=== PATIENT | female | born 1995 | race Hispanic/Latino ===

== ENCOUNTER 2020-11-19 09:20 | Emergency (ER) | payer OTHER ==
[~2020-11-19] VITALS: Ht 170.2 cm; Wt 94.3 kg
[2020-11-19 09:42] LABS: BASOPHILS % (AUTO) 0.8 % (0.0-5.0); HEMATOCRIT 37.5 % (36-48); LYMPHOCYTES % (AUTO) 36.6 % (21.0-51.0); MEAN CORPUSCULAR HGB CONC 29.9 g/dL (32.0-36.0); MEAN CORPUSCULAR VOLUME 80.3 fL (79-99); NEUTROPHILS % (AUTO) 53.3 % (40.0-77.0); PLATELET COUNT (AUTO) 324 K/uL (130-400); RED BLOOD CELL COUNT(AUTO) 4.67 MIL/uL (4.00-5.50); RED CELL DISTRIBUTION WIDTH 16.9 % (11.0-15.5); WHITE BLOOD COUNT (AUTO) 6.5 K/uL (4.8-10.8)
[2020-11-19 09:54] LABS: CREATININE 0.7 mg/dL (0.5-1.5); POTASSIUM 4.4 mmol/L (3.5-5.1)
== END 2020-11-19 09:23 | disposition home or self-care (01) ==
LOC: EDH 09:20
DX: N92.0 Excessive and frequent menstruation with regular cycle (principal)
CPT/HCPCS: 36415; 76857; 80048; 84703; 85025

== ENCOUNTER 2024-10-24 11:04 | Emergency (ER) | payer BC ==
[~2024-10-24] VITALS: Ht 157.5 cm; Wt 77.1 kg
--- NOTE | 2024-10-24 12:14 | ERN ---
ED Note History of Present Illness Stated Complaint: HEAD INJURY, BLEEDING Chief Complaint: Laceration/Avulsion Time Seen by MD: 11:05 Time Seen by Midlevel: 11:10 Dictation: 29-year-old female coming in for laceration to they left frontal scalp. Patient states she was walking upstairs when she hit a corner of a metal object. Patient states she did have positive LOC. states she woke up on the floor. At this time patient is denies any neck pain, nausea, vomiting, dizziness. Dry blood noted on one the laceration area. Patient states she is up-to-date with a tetanus vaccine. Allergies: Coded Allergies: No Known Allergies (Unverified Allergy, Unknown, 11/19/20) Past Medical History Past Medical History: No Pertinent History Surgical History: Tonsillectomy Review of System Dictation CONSTITUTIONAL: No chills, no fever, no weakness, no diaphoresis, no malaise. HEAD/FACE: Laceration to left frontal scalp EENT: No eye pain, no blurred vision, no tearing, no double vision, no ear pain, no ear discharge, no nose pain, no nasal congestion, no throat pain, no throat swelling, no mouth pain. RESPIRATORY: No cough, no orthopnea, no SOB, no stridor, no wheezing. CARDIOVASCULAR: No chest pain, no edema, no palpitations, no syncope. GASTROINTESTINAL/ABDOMINAL: No abdominal pain, no constipation, no diarrhea, no nausea, no vomiting. GENITOURINARY: No abnormal discharge, no dysuria, no frequent urination, no hematuria. No complaints of pain in the genitals. MUSCULOSKELETAL: No back pain, no gout, no joint pain, no joint swelling, no muscle pain, no muscle stiffness, no neck pain. INTEGUMENTARY: No change in color, no change in hair/nails, no dryness, no lesion, no lumps, no rash. NEUROLOGICAL/PSYCH: No anxiety, not depressed, no emotional problem, no headache, no numbness, no pre-existing deficit, no history of seizures, no tremors, no weakness. HEMATOLOGIC/LYMPHATIC: Not anemic, no history of blood clots, no apparent bleeding, no bruising, glands not swollen. All Systems Negative, Except as Noted. Review of Systems: was completed Initial Vital Sign VS Vital Signs Date Time Temp Pulse Resp B/P (MAP) Pulse Ox O2 Delivery O2 Flow Rate FiO2 10/24/24 11:10 98.1 81 14 149/94 98 Room Air 0 Physical Exam Dictation VITAL SIGNS: Reviewed. GENERAL APPEARANCE: Alert, oriented x3, no acute distress, obese. HEAD AND FACE: Laceration to left frontal scalp, dried blood noted. EYES: PERRL, pink conjunctivas, eyelid no trauma, anterior chamber clear. EARS: Pinnas intact and no signs of trauma or erythema. Ear canals clear and no discharge. TMs no erythema. NOSE: No discharge, no bleeding. OROPHARYNX: Mouth normal, teeth no caries, tongue pink. Pharynx clear, no erythema. Tonsils no exudates, no abscesses noted. Mucous membrane moist. NECK: Supple, non-tender, no thyromegaly, no masses, no JVD, no bruits. BREAST: Deferred. CHEST: No tenderness, no crepitus, no paradoxical movement, no retractions. LUNGS: Clear, well-ventilated, symmetric, no rales, no wheezing, no rhonchi, no stridor, good breath sounds bilaterally. HEART: Regular rate, regular rhythm, no murmur, no gallops. VASCULAR: No peripheral edema. ABDOMEN: Soft, positive bowel sounds, nondistended, no guarding, nontender, no rebound, no masses no hepatomegaly, no splenomegaly, no Rod's sign, no hernias. RECTAL: Deferred. GENITAL: Deferred. NEUROLOGICAL: Normal speech, gross motor function intact, gross sensory function intact. MUSCULOSKELETAL: Neck nontender, full range of motion, back nontender, full range of motion. EXTREMITIES: Nontender, full range of motion. SKIN: Color pink, dry, no turgor, no rash, no lacerations, no abrasions, no contusions. LYMPHATICS: Deferred. Results (Laboratory/Radiology) CT Scan Comment: [place] [id number] [address] IMAGING REPORT Signed PATIENT: RAYMUNDO SOTO MR#: [id number] : 1995 SEX: F AGE: 29 LOCATION: [facility] ORDER [id number] STATUS: REG REPORT#: [id number] SERVICE 1136 REASON: head trauma + loc ORDERING PHYSICIAN: ACOSTA DICK NP PROCEDURE: HEAD WO - CT HEAD/BRAIN W/O CONTRAST Exam Type: CT HEAD/BRAIN W/O CONTRAST Clinical Information: head trauma + loc Comparison: None CT Dose Index (CTDI): 57.33 mGy Dose Length Product (DLP): 956.79 total mGy-cm Findings: The examination is unremarkable. Ibanez-white matter junction is preserved. No intra or extra axial lesions or fluid collections are seen. Specifically, ibanez and white matter are normal in signal characteristics with normal caliber of ventricles and periventricular cisterns with no evidence of intra or or extra-axial hemorrhage, lacunar infarct, or major territorial infarct, mass, or other abnormality. There are no infarcts. There are no hemorrhages. Periventricular white matter locations are preserved. The orbital contents and structures of the posterior fossa are intact. Impression: Normal CT of the head. This study was performed using dose reduction techniques to include automated exposure control and/or adjustment of the mA and/or kV according to patient size. DICTATED BY: RICARDO SULLIVAN MD DATE: 10/24/241209 ELECTRONICALLY SIGNED BY: RICARDO SULLIVAN MD DATE: 10/24/241214 ED Course ED Course Orders Procedure Category Date Status Time Ct Head/Brain W/O CT 10/24/24 Resulted Contrast 11:36 Acetaminophen 500mg PHA 10/24/24 Complete Tab (Tylenol 500mg T 11:36 Tetanus,Diphtheria PHA 10/24/24 Logged Tox [Adult] (Diphther 13:00 Current Medications Medications (Trade) Dose Ordered Sig/Kendy Route PRN Reason Start Time Stop Time Status Last Admin Dose Admin Acetaminophen (TYLenol 500MG TAB) 1,000 mg ONCE STAT PO 10/24/24 11:36 10/24/24 11:38 DC Tetanus/ Diphtheria Toxoids Adsorbed (DiphthERIA-teTANUS TOXOID [ADULT]/ DECAVAC) 0.5 ml ONCE ONCE IM 10/24/24 13:00 10/24/24 13:01 UNV Vital Signs Date Time Temp Pulse Resp B/P (MAP) Pulse Ox O2 Delivery O2 Flow Rate FiO2 10/24/24 11:10 98.1 81 14 149/94 98 Room Air 0 Medical Decision Making MDM MDM: 29-year-old female coming in for laceration to they left frontal scalp. Patient states she was walking upstairs when she hit a corner of a metal object. Patient states she did have positive LOC. states she woke up on the floor. At this time patient is denies any neck pain, nausea, vomiting, dizziness. Dry blood noted on one the laceration area. Patient states she is up-to-date with a tetanus vaccine. CT scan of the head shows no acute findings. Discussed findings with the patient. Educated on red flag symptoms to report back to the emergency room. I educated to take Tylenol Motrin [id number] for pain control Differential diagnosis: ICH, scalp hematoma, scalp laceration Rationale: Tests considered and ordered secondary to shared decision making include: Previous outside records reviewed: Old ER visits. Risk of complication and/or morbidity or mortality of patient management: None Medications-Per medication reconciliation Need for hospitalization: Patient does not meet criteria for hospitalization. Need for emergency major/minor surgery: No There are no social concerns with this patient. Prescription drug management Prescriptions will include symptomatic care Patient's prior external medical records from other ER visits were reviewed by me as indicated. Prior testing and results from previous visits were reviewed. Prior tests were taken into account with medical decision making and resource utilization, independent historian/historians were used to obtain complete medical history. I independently interpreted the test that were performed, results were reviewed by me and considered findings on radiology if ordered. Medical management and examination interpretation discussions were had by me with other qualified healthcare professionals as indicated for the patient's care. Procedure Wound Location: head Wound Length (cm): 1 Wound's Depth, Shape: superficial Wound Explored: clean Wound Debrided: minimal Wound Repaired With: jaja Number of Sutures: 1 DX & DISP Disposition: Discharge Departure Impression: Primary Impression: Scalp laceration Condition: Stable Additional Instructions: Your CAT scan is negative. Take Tylenol or Motrin [id number] for pain control. Wash laceration area with soap and water. Avoid point in any ointments on the area. If you start to develop any nausea vomiting dizziness blurred vision return back to the emergency room. Referrals: SELF,REFERRAL (PCP) Time of Disposition: 12:45 I have reviewed the case, and I agree with, Diagnosis and Plan ACOSTA DICK NP Oct 24, 2024 12:14
[2024-10-24] MEDS: acetaMINOPHEN 500 MG TABLET PO STA (12:49)
[2024-10-24] MEDS: teTANUS/diphthERIA TOXOID [ADULT] 0.5 ML VIAL IM ONE (12:51)
[2024-10-24 13:01] VITALS: BP 131/84; PULSE 69; RESP 16; TEMP 97.3; O2SAT 100
== END 2024-10-24 15:02 | disposition home or self-care (01) ==
LOC: EDH 11:04
DX: S01.01XA Laceration without foreign body of scalp, initial encounter (principal); Z90.89 Acquired absence of other organs; W22.8XXA Striking against or struck by other objects, initial encounter; Y93.01 Activity, walking, marching and hiking; Y92.89 Other specified places as the place of occurrence of the external cause; Y99.8 Other external cause status
CPT/HCPCS: 12001; 70450; 90471; 90714; 99284

== ENCOUNTER 2024-11-02 12:27 | Emergency (ER) | payer BC ==
[~2024-11-02] VITALS: Ht 157.5 cm; Wt 77.1 kg
--- NOTE | 2024-11-02 12:40 | ERN ---
General Stated Complaint: STAPLE REMOVAL Time Seen by MD: 12:32 History of Present Illness Initial Comments 29-year-old female here for staple removal. Had a stable place nine days ago to the top of the head. No complaints otherwise Allergies: Coded Allergies: No Known Allergies (Unverified Allergy, Unknown, 11/19/20) Past Medical History Past Medical History: No Pertinent History Past Surgical History: Tonsillectomy ROS Dictation CONSTITUTIONAL: No chills, no fever, no weakness, no diaphoresis, no malaise. HEAD/FACE: No signs of trauma. EENT: No eye pain, no blurred vision, no tearing, no double vision, no ear pain, no ear discharge, no nose pain, no nasal congestion, no throat pain, no throat swelling, no mouth pain. RESPIRATORY: No cough, no orthopnea, no SOB, no stridor, no wheezing. CARDIOVASCULAR: No chest pain, no edema, no palpitations, no syncope. GASTROINTESTINAL/ABDOMINAL: No abdominal pain, no constipation, no diarrhea, no nausea, no vomiting. GENITOURINARY: No abnormal discharge, no dysuria, no frequent urination, no hematuria. No complaints of pain in the genitals. MUSCULOSKELETAL: No back pain, no gout, no joint pain, no joint swelling, no muscle pain, no muscle stiffness, no neck pain. INTEGUMENTARY: No change in color, no change in hair/nails, no dryness, no lesion, no lumps, no rash. NEUROLOGICAL/PSYCH: No anxiety, not depressed, no emotional problem, no headache, no numbness, no pre-existing deficit, no history of seizures, no tremors, no weakness. HEMATOLOGIC/LYMPHATIC: Not anemic, no history of blood clots, no apparent bleeding, no bruising, glands not swollen. All Systems Negative, Except as Noted. Physical Exam Physical Exam Dictation VITAL SIGNS: Reviewed. GENERAL APPEARANCE: Alert, oriented x3, no acute distress. HEAD AND FACE: Non-traumatic. EYES: PERRL, pink conjunctivas, eyelid no trauma, anterior chamber clear. EARS: Pinnas intact and no signs of trauma or erythema. Ear canals clear and no discharge. TMs no erythema. NOSE: No discharge, no bleeding. OROPHARYNX: Mouth normal, teeth no caries, tongue pink. Pharynx clear, no erythema. Tonsils no exudates, no abscesses noted. Mucous membrane moist. NECK: Supple, non-tender, no thyromegaly, no masses, no JVD, no bruits. BREAST: Deferred. CHEST: No tenderness, no crepitus, no paradoxical movement, no retractions. LUNGS: Clear, well-ventilated, symmetric, no rales, no wheezing, no rhonchi, no stridor, good breath sounds bilaterally. HEART: Regular rate, regular rhythm, no murmur, no gallops. VASCULAR: No peripheral edema. ABDOMEN: Soft, positive bowel sounds, nondistended, no guarding, nontender, no rebound, no masses no hepatomegaly, no splenomegaly, no Rod's sign, no hernias. RECTAL: Deferred. GENITAL: Deferred. NEUROLOGICAL: Normal speech, gross motor function intact, gross sensory function intact. MUSCULOSKELETAL: Neck nontender, full range of motion, back nontender, full range of motion. EXTREMITIES: Nontender, full range of motion. SKIN: Color pink, dry, no turgor, no rash, no lacerations, no abrasions, no co ntusions. LYMPHATICS: Deferred. MDM CC: Staple removal No complications Staple removed without problem We will DC DX & DISP Disposition: Discharge Departure Impression: Primary Impression: Removal of staple Condition: Stable Additional Instructions: The staple was removed. Keep the wound clean with soap and water. Referrals: SELF,REFERRAL (PCP) REBECCA DAVIS DO Nov 02, 2024 12:39
--- NOTE | 2024-11-02 12:44 | NUR ---
SINGLE STAPLE REMOVAL WOUND CLEAN DRY AND INTACT
[2024-11-02 13:00] VITALS: BP 140/82; PULSE 85; RESP 16; TEMP 98.1; O2SAT 98
== END 2024-11-02 13:04 | disposition home or self-care (01) ==
LOC: EDH 12:27
DX: S01.81XD Laceration without foreign body of other part of head, subsequent encounter (principal); Z90.89 Acquired absence of other organs; X58.XXXD Exposure to other specified factors, subsequent encounter
CPT/HCPCS: 99281

== ENCOUNTER 2025-02-05 16:49 | Emergency (ER) | payer BC ==
[~2025-02-05] VITALS: Ht 157.5 cm; Wt 75.3 kg
[2025-02-05 17:40] LABS: APPEARANCE,URINE CLEAR (CLEAR); GLUCOSE, URINE (UA) NEGATIVE (NEGATIVE); LEUKOCYTE ESTERASE ,URINE NEGATIVE Leu/uL (NEGATIVE); NITRATE,URINE NEGATIVE (NEGATIVE); OCCULT BLOOD,URINE +- (TRACE) (NEGATIVE)
[2025-02-05 17:41] LABS: ADD UA MICROSCOPIC YES
[2025-02-05 17:42] LABS: SQUAMOUS EPITHELIAL CELL,UR RARE /HPF (0-2)
[2025-02-05 17:43] LABS: HCG,QUALITATIVE URINE NEGATIVE (NEGATIVE)
[2025-02-05 18:12] LABS: IMMATURE GRANULOCYTE ABSOLUTE 0.02 K/uL (0-1); NUCLEATED RED BLOOD CELLS 0.0 % (0.0-0.19); PLATELET COUNT (AUTO) 392 K/uL (130-400); RED BLOOD CELL COUNT(AUTO) 4.85 MIL/uL (4.00-5.50); RED CELL DISTRIBUTION WIDTH 16.3 % (11.0-15.5); WHITE BLOOD COUNT (AUTO) 6.8 K/uL (4.8-10.8)
[2025-02-05 18:26] LABS: CREATININE 0.7 mg/dL (0.5-1.0); GLOMERULAR FILTR. RATE CALC 120.0 mL/min (>90); GLUCOSE,RANDOM 86.0 mg/dL (70-105); SODIUM SERUM 137.0 mmol/L (136-145); UREA NITROGEN, BLOOD 9.0 mg/dL (7-18)
--- NOTE | 2025-02-05 18:32 | ERN ---
ED Note History of Present Illness Stated Complaint: LUQ PAIN, COUGHING BLOOD, BLOODY STOOLS Chief Complaint: Abdominal Pain Time Seen by MD: 17:09 Dictation: 29-YEAR-OLD FEMALE PRESENTS TO ER COMPLAINTS OF LEFT UPPER QUADRANT PAIN PATIENT STATES SHE HAS HISTORY OF AN ENLARGED SPLEEN AND HER PCP CENTER FOR FURTHER EVALUATION IN ER. PATIENT STATES SHE HAS BEEN NAUSEOUS PATIENT STATES SHE HAS HAD FATIGUE AND NOTED SOME BLOOD IN HER STOOL AFTER HAVING A CONSTIPATED EPISODE TODAY. Allergies: Coded Allergies: No Known Allergies (Unverified Allergy, Unknown, 11/19/20) Past Medical History Past Medical History: No Pertinent History Additional Past Medical Hx: HX OF ENLARGED SPLEEN Surgical History: Tonsillectomy Review of System Dictation CONSTITUTIONAL: NEGATIVE FOR FEVER,CHILLS, AND WEIGHT LOSS. POSITIVE FATIGUE EYES: NEGATIVE FOR INJURY, PAIN,REDNESS, AND DISCHARGE ENT: NEGATIVE FOR INJURY,PAIN OR SWELLING CARDIOVASCULAR: NEGATIVE FOR CHEST PAIN, PALPITATIONS, AND EDEMA RESPIRATORY: NEGATIVE FOR SHORTNESS OF BREATH, COUGH, WHEEZING, AND PLEURITIC CHEST PAIN ABDOMEN/GI: NEGATIVE FOR VOMITING, DIARRHEA, AND CONSTIPATION, POSITIVE FOR ABDOMINAL PAIN AND NAUSEA, POSITIVE FOR BLOOD IN STOOL BACK: NEGATIVE FOR INJURY AND PAIN : NEGATIVE FOR INJURY, BLEEDING AND DISCHARGE MS/EXTREMITY: NEGATIVE FOR INJURY AND DEFORMITY SKIN: NEGATIVE FOR RASH, AND DISCOLORATION NEURO: NEGATIVE FOR HEADACHE, WEAKNESS, NUMBNESS, TINGLING, AND SEIZURE PSYCH: NEGATIVE FOR SUICIDE IDEATION, HOMICIDAL IDEATION, AND HALLUCINATIONS ALLERGY/IMMUNOLOGY: NEGATIVE FOR HIVES, RASH, AND ALLERGIES ALL SYSTEMS NEGATIVE, EXCEPT NOTED ABOVE. Initial Vital Sign VS Vital Signs Date Time Temp Pulse Resp B/P (MAP) Pulse Ox O2 Delivery O2 Flow Rate FiO2 02/05/25 16:52 99.5 92 16 130/83 100 Room Air 0 02/05/25 18:51 21 Physical Exam Dictation GENERAL: AWAKE, ALERT, NAD HEAD/FACE: NORMOCEPHALIC, ATRAUMATIC EYES: PERRL, EOMI, VISION AT BASELINE ENT: ORAL CAVITY CLEAR, TMS CLEAR, NO SIGNS OF INFECTION NECK: TRACHEA MIDLINE, SUPPLE, NO NUCHAL RIGIDITY CARDIOVASCULAR: RRR, NORMAL S1/S2, NO MRGS, NO JVD RESPIRATORY: CTAB, NO RESPIRATORY DISTRESS, NO RALES OR WHEEZES ABDOMEN: NON-DISTENDED, NORMAL BOWEL SOUNDS, POSITIVE FOR LEFT UPPER QUADRANT GUARDING, TENDERNESS UPON PALPATION. SKIN: WARM, DRY, NORMAL TURGOR, NO RASH MS/EXTREMITY: PULSES EQUAL, NO CYANOSIS, NEUROVASCULAR INTACT, FROM NEURO: COAX4, GCS 15, STRENGTH 5/5, CN 2-12 INTACT, NORMAL CEREBELLAR EXAM, NORMAL GAIT, PSYCH: NORMAL BEHAVIOR, MOOD, AND AFFECT NORMAL Results (Laboratory/Radiology) Laboratory/Radiology Laboratory Tests Test 02/05/25 17:32 02/05/25 17:59 Urine Color LIGHT-YELLOW (YELLOW) Urine Appearance CLEAR (CLEAR) Urine pH 6.0 (5.0-8.0) Urine Specific [place] 1.017 (1.001-1.031) Urine Protein NEGATIVE mg/dL (NEGATIVE) Urine Glucose (UA) NEGATIVE mg/dL (NEGATIVE) Urine Ketones NEGATIVE mg/dL (NEGATIVE) Urine Occult Blood +- (TRACE) (NEGATIVE) H Urine Nitrate NEGATIVE (NEGATIVE) Urine Bilirubin NEGATIVE mg/dL (NEGATIVE) Urine Urobilinogen 0.2 mg/dL (0.2-1.0) Urine Leukocyte Esterase NEGATIVE [place]zia/uL Urine RBC 0-1 /HPF (0-1) Urine WBC 0-1 /HPF (0-1) Urine Squamous Epithelial Cells RARE /HPF (0-2) Urine Bacteria None /HPF (None Seen) Urine HCG, Qualitative NEGATIVE (NEGATIVE) White Blood Count 6.8 K/uL (4.8-10.8) Red Blood Count 4.85 MIL/uL (4.00-5.50) Hemoglobin 12.2 g/dL (12.0-16.0) Hematocrit 39.5 % (36-48) Mean Corpuscular Volume 81.4 fL (79-99) Mean Corpuscular Hemoglobin 25.2 pg (27.0-33.0) L Mean Corpuscular Hemoglobin Concent 30.9 g/dL (32.0-36.0) L Red Cell Distribution Width 16.3 % (11.0-15.5) H Platelet Count 392 K/uL (130-400) Mean Platelet Volume 9.4 fL (7.5-10.5) Immature Granulocyte % (Auto) 0.3 % (0-1) Neutrophils (%) (Auto) 57.6 % (40.0-77.0) Lymphocytes (%) (Auto) 36.8 % (21.0-51.0) Monocytes (%) (Auto) 4.1 % (3.0-13.0) Eosinophils (%) (Auto) 0.6 % (0.0-8.0) Basophils (%) (Auto) 0.6 % (0.0-5.0) Neutrophils # (Auto) 3.9 K/uL (1.8-7.7) Lymphocytes # (Auto) 2.5 K/uL (1.0-4.8) Monocytes # (Auto) 0.3 K/uL (0.1-1.0) Eosinophils # (Auto) 0.04 K/uL (0.00-0.70) Basophils # (Auto) 0.04 K/uL (0.00-0.20) Absolute Immature Granulocyte (auto 0.02 K/uL (0-1) Nucleated Red Blood Cells 0.0 % (0.0-0.19) Red Blood Cell Morphology See comments Sodium Level 137 mmol/L (136-145) Potassium Level 3.5 mmol/L (3.5-5.1) Chloride Level 105 mmol/L (101-111) Carbon Dioxide Level 23 mmol/L (21-32) Blood Urea Nitrogen 9 mg/dL (7-18) Creatinine 0.7 mg/dL (0.5-1.0) Glomerular Filtration Rate Calc 120 mL/min (>90) Random Glucose 86 mg/dL (70-105) Total Calcium 8.9 mg/dL (8.5-10.1) Total Bilirubin 0.1 mg/dL (0.2-1.0) L Direct Bilirubin 0.1 mg/dL (0.0-0.3) Aspartate Amino Transf (AST/SGOT) 16 U/L (10-37) Alanine Aminotransferase (ALT/SGPT) 20 U/L (12-78) Alkaline Phosphatase 73 U/L (50-136) Total Protein 7.7 g/dL (6.0-8.3) Albumin 3.7 g/dL (3.5-5.0) Amylase Level 61 U/L (25-115) Lipase 46 U/L (16-77) CT Scan Comment: EXAM: CT Abdomen and Pelvis With Intravenous Contrast CLINICAL HISTORY: 29 year old female with abdominal pain. TECHNIQUE: Axial computed tomography images of the abdomen and pelvis with intravenous contrast. A standard dose of contrast was used. CONTRAST: With intravenous contrast, standard dose. COMPARISON: Comparison to prior study. FINDINGS: LUNG BASES: No basilar airspace consolidation or pleural effusion. LIVER: Unremarkable. GALLBLADDER AND BILE DUCTS: Unremarkable. No calcified stone. No ductal dilation. PANCREAS: Unremarkable. SPLEEN: Unremarkable. ADRENAL GLANDS: Unremarkable. KIDNEYS, URETERS, AND BLADDER: Symmetric enhancement of contrast in both kidneys. No hydronephrosis or nephrolithiasis. No ureteral or bladder calculi. STOMACH AND BOWEL: Large amount of stool in the colon. No obstruction. No wall thickening. No CT evidence of colitis or acute diverticulitis. APPENDIX: Normal appendix. No CT evidence for appendicitis. PERITONEUM: No free fluid. No free air. LYMPH NODES: No lymphadenopathy. REPRODUCTIVE: Unremarkable as visualized. VASCULATURE: No aortic aneurysm. ABDOMINAL WALL AND SOFT TISSUES: Unremarkable. BONES: No fracture or suspicious osseous abnormality. IMPRESSION: 1. No acute intra-abdominal or pelvic abnormality related to the abdominal pain. 2. Large amount of stool in the colon. /[facility] ED Course ED Course Orders Procedure Category Date Status Time Urinalysis Profile LAB 02/05/25 Complete 17:28 ,Urine Test LAB 02/05/25 Complete 17:28 Cbc With Differential LAB 02/05/25 Complete 17:32 Basic Metabolic Panel LAB 02/05/25 Complete 17:32 Amylase LAB 02/05/25 Complete 17:32 Lipase LAB 02/05/25 Complete 17:32 Hepatic Function Panel LAB 02/05/25 Complete 17:32 Ct Abdomen/Pelvis CT 02/05/25 Resulted W/Contrast 17:32 Iohexol (Omnipaque) PHA 02/05/25 Complete 19:53 Ketorolac PHA 02/05/25 Transmitted Tromethamine 30mg/Ml 22:00 Current Medications Medications (Trade) Dose Ordered Sig/Kendy Route PRN Reason Start Time Stop Time Status Last Admin Dose Admin Iohexol (Omnipaque) 75 ml STK-MED ONCE IV 02/05/25 19:53 02/05/25 19:53 DC Vital Signs Date Time Temp Pulse Resp B/P (MAP) Pulse Ox O2 Delivery O2 Flow Rate FiO2 02/05/25 18:51 99.3 85 19 119/73 100 Room Air* 0 21 02/05/25 16:52 99.5 92 16 130/83 100 Room Air 0 Medical Decision Making MDM MDM: DIFFERENTIAL DIAGNOSIS: GASTRITIS, CHOLECYSTITIS, ENLARGED SPLEEN RATIONALE: TESTS CONSIDERED AND ORDERED SECONDARY TO SHARED DECISION MAKING INCLUDE: LABS, ECG AND RADIOLOGY PREVIOUS OUTSIDE RECORDS REVIEWED: OLD ER VISITS. RISK OF COMPLICATION AND/OR MORBIDITY OR MORTALITY OF PATIENT MANAGEMENT: NONE MEDICATIONS-PER MEDICATION RECONCILIATION NEED FOR HOSPITALIZATION: PATIENT DOES NOT MEET CRITERIA FOR HOSPITALIZATION. NEED FOR EMERGENCY MAJOR/MINOR SURGERY: NO THERE ARE NO SOCIAL CONCERNS WITH THIS PATIENT. PRESCRIPTION DRUG MANAGEMENT PRESCRIPTIONS WILL INCLUDE SYMPTOMATIC CARE PATIENT'S PRIOR EXTERNAL MEDICAL RECORDS FROM OTHER ER VISITS WERE REVIEWED BY ME INDICATED. PRIOR TESTING AND RESULTS FROM PREVIOUS VISITS WERE REVIEWED. PRIOR TESTS WERE TAKEN INTO ACCOUNT WITH MEDICAL DECISION MAKING AND RESOURCE UTILIZATION, INDEPENDENT HISTORIAN/HISTORIANS WERE USED TO OBTAIN COMPLETE MEDICAL HISTORY. I INDEPENDENTLY INTERPRETED THE TEST THAT WERE PERFORMED, RESULTS WERE REVIEWED BY ME AND CONSIDERED FINDINGS ON RADIOLOGY IF ORDERED. CT SCAN REPORTED AT 9:23 P.M.. WENT TO GO LOOK FOR PATIENT AT 9:30 P.M. AND PATIENT IS NOT IN LOBBY. WAS GOING TO NOTIFY PATIENT ALL LABS NORMAL AND CT SCAN NEGATIVE. PATIENT FOUND SHE WAS IN HALLWAY BED. PATIENT AWARE OF ALL LAB RESULTS AND CT SCAN RESULTS. ADVISED TO FOLLOW UP WITH HER DOCTOR. DX & DISP Disposition: Discharge Departure Impression: Primary Impression: Unspecified abdominal pain Additional Impression: Constipation Condition: Stable Additional Instructions: LAB RESULTS AND SCAN NEGATIVE ON TODAY'S VISIT. FOLLOW-UP WITH YOUR PCP IN 24-72 HOURS AND IN THE EVENT IF SYMPTOMS WORSEN OR AN EMERGENCY OVERNIGHT REPORT TO THE ED IMMEDIATELY Referrals: TRANG LAND PA-C (PCP) TYLER BARRAGAN NP Feb 05, 2025 18:31
[2025-02-05 18:39] LABS: ASPARTATE AMINOTRANSFERASE 16.0 U/L (10-37); TOTAL PROTEIN, SERUM 7.7 g/dL (6.0-8.3)
[2025-02-05] MEDS ORDERED: IOHEXOL-350 75 ML VIAL IV ONE (19:53)
--- NOTE | 2025-02-05 21:24 | HMCIMG ---
EXAM: CT Abdomen and Pelvis With Intravenous Contrast CLINICAL HISTORY: 29 year old female with abdominal pain. TECHNIQUE: Axial computed tomography images of the abdomen and pelvis with intravenous contrast. A standard dose of contrast was used. CONTRAST: With intravenous contrast, standard dose. COMPARISON: Comparison to prior study. FINDINGS: LUNG BASES: No basilar airspace consolidation or pleural effusion. LIVER: Unremarkable. GALLBLADDER AND BILE DUCTS: Unremarkable. No calcified stone. No ductal dilation. PANCREAS: Unremarkable. SPLEEN: Unremarkable. ADRENAL GLANDS: Unremarkable. KIDNEYS, URETERS, AND BLADDER: Symmetric enhancement of contrast in both kidneys. No hydronephrosis or nephrolithiasis. No ureteral or bladder calculi. STOMACH AND BOWEL: Large amount of stool in the colon. No obstruction. No wall thickening. No CT evidence of colitis or acute diverticulitis. APPENDIX: Normal appendix. No CT evidence for appendicitis. PERITONEUM: No free fluid. No free air. LYMPH NODES: No lymphadenopathy. REPRODUCTIVE: Unremarkable as visualized. VASCULATURE: No aortic aneurysm. ABDOMINAL WALL AND SOFT TISSUES: Unremarkable. BONES: No fracture or suspicious osseous abnormality. IMPRESSION: 1. No acute intra-abdominal or pelvic abnormality related to the abdominal pain. 2. Large amount of stool in the colon. /[place]
[2025-02-05 23:12] VITALS: BP 110/78; PULSE 78; RESP 18; TEMP 98.6; O2SAT 99
== END 2025-02-05 23:12 | disposition home or self-care (01) ==
LOC: EDH 16:49
DX: R10.12 Left upper quadrant pain (principal); K59.00 Constipation, unspecified; Z90.89 Acquired absence of other organs
CPT/HCPCS: 99284; 74177; 96374; 82150; 80076; 80048; 83690; 85025; 81001; 81025; 36415; J1885; Q9967

== ENCOUNTER 2025-04-25 23:09 | Emergency (ER) | payer BC ==
[~2025-04-25] VITALS: Ht 157.5 cm; Wt 75.7 kg
--- NOTE | 2025-04-25 23:47 | ERN ---
ED Note History of Present Illness Stated Complaint: C/O PAINFUL BLEEDING HEMORRHOID Chief Complaint: Hemorrhoids Time Seen by MD: 23:11 Dictation: This is a 29-year-old female who presented to the emergency room with complaints of bleeding per rectum and she stated that it is very painful hemorrhoids that are bleeding. In the past she had similar episode in January at which time a CT scan of the abdomen and pelvis was done which revealed large amount of constipation. No vomitings. No hematemesis. No fever chills Patient reports chronic history of constipation has a cause of her hemorrhoids. Patient is not on any stool softeners or dietary fiber Temperature 98.1 pulse 82 respirations 20 blood pressure 136/87 with a pulse oximetry of 100% on room air Allergies: Coded Allergies: No Known Allergies (Unverified Allergy, Unknown, 11/19/20) Home Meds Active Scripts Lidocaine/Phenylephrine HCl (Hemorrhoid-Fissure Ointment) 4 %-0.25 % Oint...g., 21.3 GM TP BID for 5 Days, #21 APPL 0 Refills Prov:BASIM BAUMANN MD 04/26/25 Docusate Sodium (Colace) 100 Mg Capsule, 100 MG PO DAILY for constipation, #30 CAP 0 Refills Prov:BASIM BAUMANN MD 04/26/25 Past Medical History Past Medical History: No Pertinent History Additional Past Medical Hx: HX OF ENLARGED SPLEEN Surgical History: Tonsillectomy Family History: Negative LMP: Apr 25, 2025 RN Note Reviewed/Agreed w/PFSH: Yes Review of System Dictation Constitutional: Negative for fever,chills, and weight loss Eyes: Negative for injury, pain,redness, and discharge ENT: Negative for injury,pain or swelling Cardiovascular: Negative for chest pain, palpitations, and edema Respiratory: Negative for shortness of breath, cough, and wheezing, Abdomen/GI: Negative for abdominal pain, nausea, vomiting, diarrhea, and constipation positive for painful bleeding hemorrhoids Back: Negative for injury and pain : Negative for injury, bleeding and discharge MS/Extremity: Negative for injury and deformity Skin: Negative for rash, and discoloration Neuro: Negative for headache, weakness, numbness, tingling, and seizure Psych: Negative for suicide ideation, homicidal ideation, and hallucinations Initial Vital Sign VS Vital Signs Date Time Temp Pulse Resp B/P (MAP) Pulse Ox O2 Delivery O2 Flow Rate FiO2 04/25/25 23:10 98.1 82 20 136/87 100 Room Air 04/26/25 00:01 0 21 Physical Exam Dictation General: awake, alert, NAD Head/Face: Normocephalic, atraumatic Eyes: PERRL, EOMI, vision at baseline ENT: oral cavity clear, TMs clear, no signs of infection Neck: Trachea midline, supple, no nuchal rigidity Cardiovascular: RRR, normal S1/S2, No MRGs, no JVD Respiratory: CTAB, no respiratory distress, No rales or wheezes Abdomen: Soft, non-tender, non-distended, normal bowel sounds, no guarding or rebound. Skin: Warm, dry, normal turgor, no rash MS/Extremity: Pulses equal, no cyanosis, neurovascular intact, FROM Neuro: COAx4, GCS 15, strength 5/5, CN 2-12 intact, normal cerebellar exam, normal gait, Psych: Normal behavior, mood, and affect normal Extremities-trace edema without any palpable cords, Homans sign is negative Rectal exam-a small anal tag noted no anal fissures. No external hemorrhoids. They were internal hemorrhoids without any melania blood on my gloved finger. No active bleeding noted Results (Laboratory/Radiology) CT Scan Comment: REASON: ABOMINAL PAIN ORDERING PHYSICIAN: TYLER BARRAGAN NP PROCEDURE: ABD PEL W - CT ABDOMEN/PELVIS W/CONTRAST EXAM: CT Abdomen and Pelvis With Intravenous Contrast CLINICAL HISTORY: 29 year old female with abdominal pain. TECHNIQUE: Axial computed tomography images of the abdomen and pelvis with intravenous contrast. A standard dose of contrast was used. CONTRAST: With intravenous contrast, standard dose. COMPARISON: Comparison to prior study. FINDINGS: LUNG BASES: No basilar airspace consolidation or pleural effusion. LIVER: Unremarkable. GALLBLADDER AND BILE DUCTS: Unremarkable. No calcified stone. No ductal dilation. PANCREAS: Unremarkable. SPLEEN: Unremarkable. ADRENAL GLANDS: Unremarkable. KIDNEYS, URETERS, AND BLADDER: Symmetric enhancement of contrast in both kidneys. No hydronephrosis or nephrolithiasis. No ureteral or bladder calculi. STOMACH AND BOWEL: Large amount of stool in the colon. No obstruction. No wall thickening. No CT evidence of colitis or acute diverticulitis. APPENDIX: Normal appendix. No CT evidence for appendicitis. PERITONEUM: No free fluid. No free air. LYMPH NODES: No lymphadenopathy. REPRODUCTIVE: Unremarkable as visualized. VASCULATURE: No aortic aneurysm. ABDOMINAL WALL AND SOFT TISSUES: Unremarkable. BONES: No fracture or suspicious osseous abnormality. IMPRESSION: 1. No acute intra-abdominal or pelvic abnormality related to the abdominal pain. 2. Large amount of stool in the colon. /[place] DICTATED BY: CONSUELO RIGGS MD DATE: 02/05/252222 ELECTRONICALLY SIGNED BY: CONSUELO RIGGS MD DATE: 02/05/252222 ED Course ED Course Orders Procedure Category Date Status Time Ketorolac PHA 04/26/25 Complete Tromethamine 15mg/Ml 00:30 Hemorrhoidal Ointment PHA 04/26/25 In Process (Hem-Prep Rectal O 00:30 Current Medications Medications (Trade) Dose Ordered Sig/Kendy Route PRN Reason Start Time Stop Time Status Last Admin Dose Admin Ketorolac Tromethamine (toRADol) 15 mg ONCE ONCE IM 04/26/25 00:30 04/26/25 00:31 DC Phenyleph/Shark Oil/Glycerin/ Petrol (Hem-Prep Rectal Oint) 1 NICHOLAS AD ONCE PRN RC HEMORRHOIDS 04/26/25 00:30 05/26/25 00:29 Vital Signs Date Time Temp Pulse Resp B/P (MAP) Pulse Ox O2 Delivery O2 Flow Rate FiO2 04/26/25 00:01 97.5 70 18 116/72 100 Room Air* 0 21 04/25/25 23:10 98.1 82 20 136/87 100 Room Air Medical Decision Making MDM Differential diagnosis: Bleeding hemorrhoids, anal fissure, infected hemorrhoids, perianal abscess This is a 29-year-old female who presented to the emergency room with complaints of bleeding per rectum and she stated that it is very painful hemorrhoids that are bleeding. In the past she had similar episode in January at which time a CT scan of the abdomen and pelvis was done which revealed large amount of constipation. No vomitings. No hematemesis. No fever chills Patient reports chronic history of constipation has a cause of her hemorrhoids. Patient is not on any stool softeners or dietary fiber Temperature 98.1 pulse 82 respirations 20 blood pressure 136/87 with a pulse oximetry of 100% on room air Rectal exam Anal tag. Internal hemorrhoids. No external hemorrhoids Updated patient and her on rectal exam findings. There is no active bleeding noted at this time. I counseled her extensively on dietary modifications and use of stool softener daily. Recommended hemorrhoidal preparations OTC. Stool softener daily Previous outside records reviewed: Old ER visits. Risk of complication and/or morbidity or mortality of patient management: None Medications-Per medication reconciliation Need for hospitalization: Patient does not meet criteria for hospitalization. Need for emergency major/minor surgery: No There are no social concerns with this patient. Prescription drug management Prescriptions will include symptomatic care Patient's prior external medical records from other ER visits were reviewed by me as indicated. Prior testing and results from previous visits were reviewed. Prior tests were taken into account with medical decision making and resource u tilization, independent historian/historians were used to obtain complete medical history. I independently interpreted the test that were performed, results were reviewed by me and considered findings on radiology if ordered. Medical management and examination interpretation discussions were had by me with other qualified healthcare professionals as indicated for the patient's ca re. Problem List Problem List: (1) Hemorrhoids (2) Constipation (3) Bleeding hemorrhoids DX & DISP Disposition: Discharge Departure Impression: Primary Impression: Bleeding hemorrhoids Additional Impressions: Constipation, Hemorrhoids Condition: Stable Scripts Lidocaine/Phenylephrine HCl (Hemorrhoid-Fissure Ointment) 4 %-0.25 % Oint...g. 21.3 GM TP BID for 5 Days, #21 APPL 0 Refills Prov: BASIM BAUMANN MD 04/26/25 Docusate Sodium (Colace) 100 Mg Capsule 100 MG PO DAILY for constipation, #30 CAP 0 Refills Prov: BASIM BAUMANN MD 04/26/25 Additional Instructions: Patient and the caregiver have been informed of all the diagnostic tests and the imaging conducted during the today's visit to the emergency room and has verbalized understanding of the results I have personally reviewed and interpreted all diagnostic exams performed here in the ER today as well as the vital signs documented by the nursing staff. The patient is now being discharged to home and should follow up with the primary care physician or the specialist as directed by the ER staff. Referrals: TRANG LAND PA-C (PCP) BASIM BAUMANN MD 10, 2025 23:47
[2025-04-26] MEDS: HEMORRHOIDAL OINTMENT 57 GM CREAM.GM. RC PRN (01:03)
[2025-04-26 01:20] VITALS: BP 121/68; PULSE 73; RESP 18; TEMP 97.6; O2SAT 100
== END 2025-04-26 01:21 | disposition home or self-care (01) ==
LOC: EDH 23:09
DX: K64.9 Unspecified hemorrhoids (principal); K59.00 Constipation, unspecified; Z90.89 Acquired absence of other organs
CPT/HCPCS: 99284; 96372; J1885